=== PATIENT | male | born 1985 | race Hispanic/Latino ===

== ENCOUNTER 2020-11-30 13:48 | Emergency (ER) | payer OTHER, SELFPAY ==
--- NOTE | ~2020-11-30 | XR_ITS ---
EXAMINATION: XR chest 2V DATE: 11/30/2020 14:42 INDICATION: Cough and body aches TECHNIQUE: PA and lateral views of the chest are obtained. COMPARISON: None available FINDINGS: There are subtle airspace opacities of the right upper lobe. There is no pleural effusion o r pneumothorax. The cardiomediastinal silhouette is normal. The visualized bones and soft tissues are unremarkable. IMPRESSION: 1. Airspace opacities of the right upper lobe, likely pneumonia. Reviewed, dictated and finalized at location B.
[2020-11-30 14:30] VITALS: BP 140/75; PULSE 120; RESP 14; TEMP 37.2; O2SAT 99
[2020-11-30 15:27] LABS: Basophils Percent Auto 0.2 % (0.2-1.2); Hematocrit 52.1 % (42.0-52.0); Hemoglobin 17.3 g/dL (14.0-18.0); Immature Granulocyte Absolute 0.01 K/mm3 (0.00-0.031); Immature Granulocyte Percent A 0.2 % (0-0.5); Lymphocytes Absolute Auto 0.97 K/mm3 (0.9-3.2); Lymphocytes Percent Auto 18.2 % (18.3-44.2); Mean Corpuscular HGB Conc 33.2 g/dl (32-36); Mean Corpuscular Hemoglobin 27.8 pg (26-34); Mean Corpuscular Volume 83.8 fl (80-100); Mean Platelet Volume 10.4 fl (7.4-10.4); Monocytes Absolute Auto 0.6 K/mm3 (0.1-0.6); Monocytes Percent Auto 11.5 % (2.6-8.5); Neutrophils Absolute Auto 3.7 K/mm3 (1.3-6.7); Neutrophils Percent Auto 69.9 % (45.5-73.1); Platelet Count Result 174 k/mm3 (150-375); Red Blood Count 6.22 M/mm3 (4.6-6.20); Red Cell Distribution Width 12.6 % (11.5-14.5); White Blood Count 5.3 K/mm3 (4.5-10.0)
[2020-11-30 15:37] LABS: Anion Gap 15 mmol/L (8-16); Blood Urea Nitrogen 13 mg/dL (9-20); Calcium 9.1 mg/dL (8.4-10.2); Carbon Dioxide 25 mmol/L (22-30); Chloride 98 mmol/L (98-107); Estimated CRCL calculation 156 ml/min; Estimated Glomerular Filt Rate > 60; Glucose 111 mg/dL (65-110); Potassium 3.7 mmol/L (3.4-5.0); Sodium 138 mmol/L (137-145)
[2020-11-30 17:07] VITALS: BP 151/71; PULSE 118; RESP 18; O2SAT 98
[2020-11-30 17:09] VITALS: O2SAT 97
--- NOTE | 2020-11-30 18:58 | ED.URI ---
HPI - URI/Sore Throat General Chief Complaint: Upper Respiratory Infection Stated Complaint: fever/throat pain/weak Time Seen by Provider: 11/30/20 17:56 Source: patient Mode of arrival: ambulatory Limitations: no limitations History of Present Illness HPI Narrative: This is a 35 year old male that presents to the ER for cold symptoms ongoing over the last couple of days. Reports fever, cough, myalgias and sore throat. He has not had his Covid vaccine. Denies chest pain or shortness of breath. Related Data Home Medications Medication Instructions Recorded Confirmed No Home Medications 11/30/20 11/30/20 Allergies Allergy/AdvReac Type Severity Reaction Status Date / Time No Known Allergies Allergy Verified 11/30/20 17:10 Review of Systems Review of Systems: Narrative: CONSTITUTIONAL: Reports fever ENT: Reports rhinorrhea, congestion, sore throat CARDIOVASCULAR: Denies chest pain RESPIRATORY: Reports cough. Denies dyspnea. MUSCULOSKELETAL: Reports myalgia. All systems reviewed & are unremarkable except as noted in HPI and below PMFSH Past Medical History Medical History (Updated 11/30/20 @ 19:10 by Lupe Null PA-C) No active medical problems Social History Social History (Updated 11/30/20 @ 19:07 by Lupe Null PA-C) Smoking status: Never smoker Gender identity (if verbalized by the patient): Male Exam Narrative: Exam Narrative: GENERAL: Well-appearing, well-nourished, and in no acute distress. HEAD: Normocephalic, atraumatic. EYES: EOMI. ENT: Nares clear, no rhinorrhea or epistaxis. Mucous membranes moist. Oropharynx without tonsillar hypertrophy exudate or other lesions. Bilateral TMs pearly vivas non-bulging NECK: Supple. No adenopathy or masses. CHEST: Clear to auscultation. No respiratory distress. No wheezes rales or rhonchi HEART: Regular rate and rhythm. No murmur heard. Normal peripheral pulses. EXTREMITIES: Normal range of motion. No edema. SKIN: Warm, dry, no rash. NEURO: No focal deficits. Alert and oriented x3. PSYCH: Normal mood and affect Course Vital Signs Vital signs: Vital Signs Temperature 98.9 F 11/30/20 14:30 Pulse Rate 120 H 11/30/20 14:30 Respiratory Rate 14 11/30/20 14:30 Blood Pressure 140/75 11/30/20 14:30 Pulse Oximetry 99 11/30/20 14:30 Temperature 98.9 F 11/30/20 14:30 Pulse Rate 118 H 11/30/20 17:07 Respiratory Rate 18 11/30/20 17:07 Blood Pressure 151/71 H 11/30/20 17:07 Pulse Oximetry 97 11/30/20 17:09 MDM - URI/Sore Throat MDM Narrative Medical decision making narrative: Patient presents to the emergency department for cold symptoms ongoing over the last couple of days. He is afebrile and nontoxic-appearing. Oxygen saturation is normal on room air. Tachycardic upon arrival, this down trended without intervention. CBC without leukocytosis. Metabolic panel without concerning findings. Chest x-ray shows airspace opacities the right upper lobe, likely pneumonia. Patient has not been vaccinated for Covid. I did send a Covid swab. Patient will be treated with oral antibiotics for possible bacterial pneumonia pending Covid test. He is stable and felt appropriate for further outpatient evaluation. He was given warnings to return to the ER Lab Data Attestation: I reviewed the patient's lab results. Result diagrams: 11/30/20 15:19 11/30/20 15:19 Labs: Lab Results 11/30/20 11/30/20 Range/Units 15:19 15:19 WBC 5.3 (4.5-10.0) K/mm3 RBC 6.22 H (4.6-6.20) M/mm3 Hgb 17.3 (14.0-18.0) g/dL Hct 52.1 H (42.0-52.0) % MCV 83.8 (80-100) fl MCH 27.8 (26-34) pg MCHC 33.2 (32-36) g/dl RDW 12.6 (11.5-14.5) % Plt Count 174 (150-375) k/mm3 MPV 10.4 (7.4-10.4) fl Immature Gran % (Auto) 0.2 (0-0.5) % Neut % (Auto) 69.9 (45.5-73.1) % Lymph % (Auto) 18.2 L (18.3-44.2) % [place] % (Auto) 11.5 H (2.6-8.5) % Eos % (Auto) 0.0 (0-4.4) % Baso % (Auto) 0.2 (
[2020-11-30 19:11] VITALS: BP 123/95; PULSE 113; RESP 32; O2SAT 97
[2020-11-30] MEDS: ACETAMINOPHEN 500 MG TABLET 1000 MG PO (19:18)
[2020-11-30 19:56] VITALS: BP 121/86; PULSE 103; RESP 36; TEMP 38.3; O2SAT 97
[2020-11-30 20:08] VITALS: BP 119/79; PULSE 103; RESP 98; O2SAT 98
[2020-12-01 19:08] LABS: SARS-CoV-2 RNA PCR Positive
== END 2020-11-30 20:11 | disposition home or self-care (01) ==
PROVIDERS: Emergency Medicine; Physician Assistant; Emergency Provider Family Medicine
DX: U07.1 COVID-19 (principal); J12.82 Pneumonia due to coronavirus disease 2019
CPT/HCPCS: 36415; 71046; 80048; 85025; 99284; A9270; C9803; U0003; U0005

== ENCOUNTER 2020-12-04 22:50 | Emergency (ER) | payer OTHER, SELFPAY ==
--- NOTE | ~2020-12-04 | XR_ITS ---
XR chest 1V portable DATE: 12/05/2020 01:17 INDICATION: Fever, cough, back pain, elevated d-dimer TECHNIQUE: Portable AP chest on 12/05/2020 at 0106 hours COMPARISON: 11/30/2020 PA and lateral chest FINDINGS: Extensive scattered bilateral pulmonary infiltrates, most likely due to bilateral pneumonia , most likely Covid 19. No pleural effusion. No pneumothorax. Normal heart size. IMPRESSION: Extensive patchy bilateral pulmonary infiltrates, mostly new since 11/30/2020, likely due to Covid 19 pneumonia Reviewed, dictated and finalized at location A.
--- NOTE | ~2020-12-04 | CT_ITS ---
EXAMINATION: CTA chest PE protocol DATE: 12/05/2020 03:21 INDICATION: Back pain, fever. Elevated d-dimer. TECHNIQUE: Computed tomography angiography (CTA) of the chest was performed with 100 mL Omnipaque-350 intravenous contrast timed to evaluate the pulmonary arteries. Coronal maximum intensity projection 3D-reconstructions were created by the technologist. Automated exposure control and iterative reconst ruction technique were employed. Exam dose: 224.15 mGy-cm total exam DLP. COMPARISON: 12/05/2020 portable AP chest FINDINGS: There is diagnostic contrast enhancement of the pulmonary arteries and no evidence of pulmo nary embolism. No thoracic aortic aneurysm or dissection. Likely reactive mild hilar and mediastinal lymph node prominence. Normal heart size. No pericardial or pleural effusion. There are extensive patchy bilateral pulmonary embolic infiltrates involving all lobes, consistent wi th bilateral Covid 19 pneumonia. Included skeletal structures are unremarkable. IMPRESSION: No evidence of pulmonary embolism Bilateral Covid 19 pneumonia Reviewed, dictated and finalized at Location [facility]. Reviewed, dictated and finalized at location A.
[2020-12-04 23:05] VITALS: BP 118/79; PULSE 125; RESP 20; TEMP 37.1; O2SAT 96
[2020-12-05 00:15] VITALS: BP 138/92; PULSE 113; RESP 18; TEMP 36.7; O2SAT 100
--- NOTE | 2020-12-05 01:22 | ED.GENADULT ---
HPI - General Adult General Chief complaint: Unspecified Stated complaint: cough, back pain Time Seen by Provider: 12/05/20 00:48 Source: patient and RN notes reviewed Mode of arrival: ambulatory Limitations: no limitations History of Present Illness HPI narrative: This is a 35 year old male who presents for evaluation of worsening cough and upper back pain. Patient developed cough, fever, sore throat and myalgia 8 days ago. HE was evaluated on Sunday in ED and he was diagnosed with covid pneumonia. He was discharge with antibiotics. He states he came in tonight because he is having upper back pain with worsening cough. HE denies fever, nausea, vomiting or shortness of breath. He does reports diarrhea. Related Data Home Medications Medication Instructions Recorded Confirmed No Home Medications 11/30/20 11/30/20 Allergies Allergy/AdvReac Type Severity Reaction Status Date / Time No Known Allergies Allergy Verified 11/30/20 17:10 Review of Systems Review of Systems: Narrative: CONSTITUTIONAL: reports weakness, anorexia EYES: Denies visual changes, redness, or discharge. ENT: Denies rhinorrhea, congestion, sore throat, or otalgia. CARDIOVASCULAR: Denies chest pain, palpitations, or edema. RESPIRATORY:reports cough . denies dyspnea. GASTROINTESTINAL: Denies abdominal pain, nausea, vomiting, . reports diarrhea GENITOURINARY: Denies dysuria or hematuria. SKIN: Denies rash or itching. MUSCULOSKELETAL:reports back pain NEUROLOGIC: Denies headache, numbness, or weakness. PSYCHIATRIC: Denies anxiety or depression. All systems reviewed & are unremarkable except as noted in HPI and below Constitutional: Constitutional: Reports anorexia and Denies fever(s) PMFSH Past Medical History Medical History (Updated 12/05/20 @ 05:05 by Shannon Dillard MD) No active medical problems Social History Social History (Updated 11/30/20 @ 19:07 by Lupe Null PA-C) Smoking status: Never smoker Gender identity (if verbalized by the patient): Male Exam Narrative: Exam Narrative: GENERAL: Well-appearing, well-nourished, and in no acute distress. HEAD: Normocephalic, atraumatic EYES: PERRLA and EOMI, conjunctiva clear without discharge THROAT:Mucous membranes moist, Oropharynx normal without erythema, exudate, peritonsillar swelling or fluctuance NECK: Supple, without lymphadenopathy or mass RESPIRATORY: No respiratory distress, Airway patent, Respirations non-labored, Clear to auscultation without rales, rhonchi or wheeze HEART: Regular rate and rhythm. No murmur heard. Normal peripheral pulses. ABDOMEN: Soft, nontender, nondistended, normal active bowel sounds. No masses. No rebound or guarding, No organomegaly. EXTREMITIES: No edema, normal strength with full range of motion. SKIN: Warm, dry, normal color without rash NEURO: Alert and oriented x3. CN 2-12 grossly intact. No focal deficits. PSYCH: Normal mood and affect. Course Reevaluation(s) Reevaluation #1: PAtient states he feels better. He was found to have covid pneumonia. HE is not requiring oxygen. He was able to ambulate with out shortness of breath and he was able to maintain saturation 94% . I discussed discharge plan and management. Date: 12/05/20 Time: 04:53 Vital Signs Vital signs: Vital Signs Temperature 98.7 F 12/04/20 23:05 Pulse Rate 125 H 12/04/20 23:05 Respiratory Rate 20 12/04/20 23:05 Blood Pressure 118/79 12/04/20 23:05 Pulse Oximetry 96 12/04/20 23:05 Temperature 98.6 F 12/05/20 05:29 Pulse Rate 88 12/05/20 05:29 Respiratory Rate 20 12/05/20 05:29 Blood Pressure 156/81 H 12/05/20 05:29 Pulse Oximetry 100 12/05/20 05:29 Medical Decision Making Vital Signs Vital Signs: Vital Signs Temperature 98.7 F 12/04/20 23:05 Pulse Rate 125 H 12/04/20 23:05 Respiratory Rate 20 12/04/20 23:05 Blood Pressure 118/79 12/04/20 23:05 Pulse Oximetry 96 12/04/20 23:05 Temp
[2020-12-05 01:35] LABS: Basophils Percent Auto 0.3 % (0.2-1.2); Hematocrit 43.7 % (42.0-52.0); Hemoglobin 15.1 g/dL (14.0-18.0); Immature Granulocyte Absolute 0.01 K/mm3 (0.00-0.031); Immature Granulocyte Percent A 0.3 % (0-0.5); Lymphocytes Absolute Auto 0.75 K/mm3 (0.9-3.2); Lymphocytes Percent Auto 19.6 % (18.3-44.2); Mean Corpuscular HGB Conc 34.6 g/dl (32-36); Mean Corpuscular Hemoglobin 27.7 pg (26-34); Mean Platelet Volume 10.1 fl (7.4-10.4); Monocytes Absolute Auto 0.4 K/mm3 (0.1-0.6); Monocytes Percent Auto 9.1 % (2.6-8.5); Neutrophils Absolute Auto 2.7 K/mm3 (1.3-6.7); Neutrophils Percent Auto 70.7 % (45.5-73.1); Platelet Count Result 169 k/mm3 (150-375); Red Blood Count 5.46 M/mm3 (4.6-6.20); Red Cell Distribution Width 11.9 % (11.5-14.5); White Blood Count 3.8 K/mm3 (4.5-10.0)
[2020-12-05 01:37] LABS: Prothrombin Time 12.7 Seconds (11.1-14.7)
[2020-12-05 01:38] LABS: Lactic Acid Reflex 0.9 mmol/L (0.7-2.1); Partial Thromboplastin Time 33.8 SECONDS (22.3-36.8)
[2020-12-05 01:53] LABS: Alanine Aminotransferase 25 U/L (4-50); Albumin Level 4.1 g/dL (3.5-5.1); Alkaline Phosphatase 67 U/L (38-126); Anion Gap 13 mmol/L (8-16); Aspartate Amino Transferase 46 U/L (17-59); Bilirubin,Total 0.5 mg/dL (0.2-1.3); Blood Urea Nitrogen 13 mg/dL (9-20); Calcium 8.1 mg/dL (8.4-10.2); Carbon Dioxide 23 mmol/L (22-30); Chloride 96 mmol/L (98-107); Estimated CRCL calculation 114 ml/min; Estimated Glomerular Filt Rate > 60; Glucose 99 mg/dL (65-110); Potassium 3.4 mmol/L (3.4-5.0); Sodium 132 mmol/L (137-145)
[2020-12-05] MEDS: SODIUM CHLORIDE 0.9% IV 1,000 ML 999 ML IV CONT (02:10)
[2020-12-05 02:13] LABS: CRP 13.6 mg/dL (<1.0)
[2020-12-05] MEDS: ALBUTEROL SULFATE (*SP) AEROSOL 1 PUFF 2 PUFF INHALATION (02:29)
[2020-12-05 02:48] LABS: D Dimer 0.79 ug/mL (<0.48)
[2020-12-05 03:00] VITALS: BP 136/78; PULSE 97; RESP 20; O2SAT 100
[2020-12-05 04:00] VITALS: BP 136/88; PULSE 98; RESP 18; O2SAT 100
[2020-12-05 05:29] VITALS: BP 156/81; PULSE 88; RESP 20; TEMP 37; O2SAT 100
== END 2020-12-05 05:33 | disposition home or self-care (01) ==
PROVIDERS: Emergency Provider General Practice
DX: U07.1 COVID-19 (principal); J12.82 Pneumonia due to coronavirus disease 2019; E86.0 Dehydration
CPT/HCPCS: 36415; 71045; 71275; 80053; 83605; 85025; 85380; 85610; 85730; 86140; 96361; 96365; 99284; A9270; J0131; J7030; Q9967